=== PATIENT | female | born 1945 | race Caucasian/White ===

== ENCOUNTER 2025-02-05 09:26 | Emergency (ER) | payer MEDICARE, OTHER ==
[~2025-02-05] VITALS: Ht 160 cm; Wt 89.9 kg
[~2025-02-05 09:26] MED LIST: GLIPIZIDE ER5 MG PO; LIDODERM1 EACH TOP; LIPITOR20 MG PO; LISINOPRIL10 MG PO; TIZANIDINE HCL4 M1 PO; TYLENOL EXTRA500 MG PO; ULTRAM50 MG PO; VOLTAREN ARTHRI20 GM TOP
[2025-02-05] MEDS ORDERED: MELOXICAM7.5 MG PO (10:08)
[2025-02-05] MEDS ORDERED: HYDROCODONE/ACETA 5/325 TAB PO ONE (10:15)
[2025-02-05] MEDS ORDERED: ONDANSETRON 4 MG TAB ODT SL ONE (10:15)
[2025-02-05 10:36] LABS: BLOOD/HGB, URINE LARGE (Negative); KETONE, URINE NEGATIVE (Negative); LEUK ESTERASE, URINE NEGATIVE (negative); NITRITE, URINE NEGATIVE (negative)
[2025-02-05 10:43] LABS: BACTERIA, URINE NONE SEEN /hpf (negative); CASTS, URINE NONE SEEN \\lpf; CRYSTALS, URINE NONE SEEN (0-1+); EPITHELIAL CELLS, URINE 0 /lpf (0-1+); REFLEX CULTURE, URINE No (No)
[2025-02-05] MEDS ORDERED: HYDROCODON-ACE1 EA10 PO (12:03)
[2025-02-05 13:00] VITALS: BP 138/59
== END 2025-02-05 13:00 | disposition home or self-care (01) ==
LOC: ED 09:26
PROVIDERS: Emergency Medicine
DX: M54.50 Low back pain, unspecified (principal); N28.89 Other specified disorders of kidney and ureter; E11.9 Type 2 diabetes mellitus without complications; I10 Essential (primary) hypertension; E78.5 Hyperlipidemia, unspecified; Z88.0 Allergy status to penicillin; Z91.040 Latex allergy status; Z79.84 Long term (current) use of oral hypoglycemic drugs; Z79.1 Long term (current) use of non-steroidal anti-inflammatories (NSAID); Z79.899 Other long term (current) drug therapy
CPT/HCPCS: 74176; 81001; 99284-25; A9270